=== PATIENT | female | born 2000 | race Caucasian/White ===

== ENCOUNTER 2018-05-09 03:48 | Emergency (ER) | payer OTHER ==
[~2018-05-09] VITALS: Ht 162.6 cm; Wt 61.2 kg
--- OUTSIDE RECORDS SUMMARY | 2018-05-09 03:55 | XMS REPORT ---
Author Author [facility] Address Unknown Care Team Providers Care Gizzard Puller Name Role Phone KEVINSUSY Unavailable PROBLEMS Unknown Problems ALLERGIES No Known Allergies ENCOUNTERS Encounter Location Date Diagnosis [facility] [address] [id number] [place], [place] [id number] Oct, Dental examination Z01.20 IMMUNIZATIONS No Known Immunizations SOCIAL HISTORY Never Assessed REASON FOR VISIT dorinda PLAN OF CARE VITAL SIGNS Blood pressure systolic 135 mmHg 2017-10-20 Blood pressure diastolic 92 mmHg 2017-10-20 MEDICATIONS Medication Instructions Dosage Frequency Start Date End Date Duration Status Depo-Provera Active RESULTS No Results PROCEDURES Procedure Date Ordered Result Body Site LTD ORAL EVALUATION - PROBLEM FOCUS Oct 20, 2017 INTRAORL-PERIAPICAL 1 FILM [id number] Oct 20, 2017 BITEWING - SINGLE FILM Oct 20, 2017 INSTRUCTIONS MEDICATIONS ADMINISTERED No Known Medications MEDICAL (GENERAL) HISTORY Type Description Date Medical History Control
[2018-05-09] MEDS ORDERED: OXYC-471 (03:59)
[2018-05-09] MEDS ORDERED: NS IV 1000 ML 1,000 ML IV ONE ×2 (04:06→05:06)
[2018-05-09 04:16] VITALS: BP_SYST 112; BP_SYST 116; BP_SYST 118; BP_DIAS 78; BP_DIAS 83; BP_DIAS 84
--- NOTE | 2018-05-09 04:16 | ED EENT ---
History of Present Illness General Chief Complaint: Oral/Throat Problems Stated Complaint: THROAT BLEEDING 9 DAYS POST SURGERY Nursing Triage Note: patient reports having a tonsilectomy 9 days prior. patient states that she went to sleep about 0100 and woke up about 0330 and felt like she was drowning due to bleeding from mouth/throat. patient unsure how long she has been bleeding. patient stated she attempted to gargle salt water at home Source: patient Exam Limitations: no limitations History of Present Illness Date Seen by Provider: May 09, 2018 Time Seen by Provider: 04:00 Initial Comments PT ARRIVES VIA POV PT HAD TONSILLECTOMY DONE 04/29/[address] NORWOOD AT [facility] IN [place] PT STATES SHE WOKE UP AT 0330 AND FELT LIKE SHE WAS DROWNING AND WAS HAVING PAIN IN HER THROAT, MOSTLY ON THE RIGHT SIDE LOOKED IN THE MIRROR AND WAS HAVING BLEEDING FROM HER THROAT--MOSTLY FROM THE RIGHT SIDE TRIED TO DO SALT WATER GARGLE BUT WAS NOT ABLE TO STATES SHE FELT LIGHTHEADED, GOT SWEATY AND REALLY WEAK LIKE SHE MIGHT PASS OUT , ESPECIALLY ON STANDING AND WALKING PT LATER STATES THAT SHE HAD SOME MILD BLEEDING 2 NIGHTS AGO, AGAIN WOKE HER FROM SLEEP IN THE MIDDLE OF THE NIGHT, AND WAS ABLE TO GET IT STOPPED WITH GARGLING HAD FRIEND DRIVE HER HERE. PT IS HERE VISITING A FRIEND. NO FEVER NO COUGH OR URI SYMPTOMS NO NAUSEA/VOMITING PT STATES SHE WAS GIVEN RX FOR OXYCODONE AFTER SURGERY, AND LAST DOSE WAS AT 2000 STATES SHE WAS NOT SENT HOME ON ANTIBIOTICS. Allergies and Home Medications Allergies Coded Allergies: No Known Drug Allergies (Unverified , 05/09/18) Patient Home Medication List Home Medication List Reviewed: Yes Review of Systems Constitutional: see HPI, diaphoresis, dizziness Eyes: No Symptoms Reported Ears: No Symptoms Reported Nose: no symptoms reported Mouth: no symptoms reported Throat: see HPI, pain, painful swallowing Respiratory: no symptoms reported Cardiovascular: no symptoms reported Gastrointestinal: no symptoms reported Musculoskeletal: no symptoms reported Skin: no symptoms reported Neurological: No Symptoms Reported Hematologic/Lymphatic: No Symptoms Reported Immunological/Allergic: no symptoms reported Past Uarmuyp-Gdpggx-Nrylgh Hx Patient Social History Alcohol Use: Denies Use Recreational Drug Use: No Smoking Status: Never a Smoker Recent Foreign Travel: No Contact w/Someone Who Travel: No Recent Infectious Disease Expo: No Ebola Symptoms: Denies Symptoms Listed Physical Abuse: No Sexual Abuse: No Past Medical History Surgeries: Yes Adenoidectomy, Tonsillectomy Respiratory: No Cardiac: No Neurological: No Genitourinary: No Gastrointestinal: No Musculoskeletal: No Endocrine: No HEENT: No Cancer: No Psychosocial: No Nursing Suicide Risk Score: 0 Integumentary: No Blood Disorders: No Physical Exam Vital Signs Vital Signs - First Documented 05/09/18 05/09/18 03:56 05:02 Temp 98.1 Pulse 83 Resp 18 B/P (MAP) 119/82 Pulse Ox 98 O2 Delivery Room Air Height, Weight, BMI Height: 5', 4.00" Weight: 135lbs oz, 61.535712bh Method: ,21.09BMI General Appearance: WD/WN, no apparent distress Eyes: bilateral eye normal inspection Ears: bilateral ear auricle normal, bilateral ear canal normal, bilateral ear TM normal Nose: normal inspection Mouth/Throat: other (VOICE MUFFLED. BLOOD WITH CLOTS IN TONSILLAR BEDS--BUT APPEARS TO BE MOSTLY ON RIGHT. 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, no motor/sensory deficits, alert, normal mood/affect, oriented x 3 Skin: normal color, warm/dry Progress/Results/Core Measures Results/Orders Lab Results Laboratory Tests Test 05/09/18 04:17 Range/Units White Blood Count 7.2 4.3-11.0 10^3/uL Red Blood Count 3.90 L 4.35-5.85 10^6/uL Hemoglobin 12.4 11.5-16.0 G/DL Hematocrit 35 35-52 % Mean Corpuscular Volume 90 80-99 FL Mean Corpuscular Hemoglobin 32 25-34 PG Mean Corpuscular Hemoglobin Concent 35 32-36 G/DL Red Cell Distribution Width 11.9 10.0-14.5 % Platelet Count 367 130-400 10^3/uL Mean Platelet Volume 9.5 7.4-10.4 FL Neutrophils (%) (Auto) 40 L 42-75 % Lymphocytes (%) (Auto) 48 H 12-44 % Monocytes (%) (Auto) 8 0-12 % Eosinophils (%) (Auto) 3 0-10 % Basophils (%) (Auto) 0 0-10 % Neutrophils # (Auto) 2.9 1.8-7.8 X 10^3 Lymphocytes # (Auto) 3.5 1.0-4.0 X 10^3 Monocytes # (Auto) 0.6 0.0-1.0 X 10^3 Eosinophils # (Auto) 0.2 0.0-0.3 10^3/uL Basophils # (Auto) 0.0 0.0-0.1 10^3/uL Prothrombin Time 14.8 H 12.2-14.7 SEC INR Comment 1.2 0.8-1.4 Activated Partial Thromboplast Time 27 24-35 SEC Sodium Level 138 135-145 MMOL/L Potassium Level 3.8 3.6-5.0 MMOL/L Chloride Level 108 H 98-107 MMOL/L Carbon Dioxide Level 16 L 21-32 MMOL/L Anion Gap 14 5-14 MMOL/L Blood Urea Nitrogen 7 7-18 MG/DL Creatinine 0.78 0.60-1.30 MG/DL Estimat Glomerular Filtration Rate > 60 BUN/Creatinine Ratio 9 Glucose Level 93 70-105 MG/DL Calcium Level 9.7 8.5-10.1 MG/DL Serum Test, Qualitative NEGATIVE NEGATIVE My Orders Orders - MIGUEL CHIU DO Saline Lock/Iv-Start (05/09/18 04:06) Orthostatic Vital Signs (Adult (05/09/18 04:06) Basic Metabolic Panel (05/09/18 04:06) Cbc With Automated Diff (05/09/18 04:06) Hcg,Qualitative Serum (05/09/18 04:06) Protime With Inr (05/09/18 04:06) Partial Thromboplastin Time (05/09/18 04:06) Saline Lock/Iv-Start (05/09/18 04:06) Ns Iv 1000 Ml (Sodium Chloride 0.9%) (05/09/18 04:06) Fentanyl Injection (Sublimaze Injection (05/09/18 05:03) Saline Lock/Iv-Start (05/09/18 05:06) Ns Iv 1000 Ml (Sodium Chloride 0.9%) (05/09/18 05:06) Medications Given in ED Current Medications Medications Dose Ordered Sig/Silvia Route Start Time Stop Time Status Last Admin Dose Admin Sodium Chloride 1,000 ml @ 0 mls/hr Q0M ONCE IV 05/09/18 04:06 05/09/18 04:09 DC 05/09/18 04:23 0 MLS/HR Sodium Chloride 1,000 ml @ 0 mls/hr Q0M ONCE IV 05/09/18 05:06 05/09/18 05:07 DC 05/09/18 05:12 0 MLS/HR Vital Signs/I&O 05/09/18 05/09/18 05/09/18 05/09/18 03:56 04:16 05:02 05:43 Temp 98.1 98.4 98.2 Pulse 83 66 65 64 85 110 Resp 18 18 B/P (MAP) 119/82 116/83 (94) 114/79 (91) 118/84 (95) 112/78 (89) Pulse Ox 98 98 O2 Delivery Room Air Progress Progress Note : Progress Note ORTHOSTATICS + AND PT IS SYMPTOMATIC WITH THEM PARENTS ARRIVE DURING ER STAY PT GIVEN FENTANYL FOR PAIN UNEVENTFUL ER STAY NO COUGHING OR VOMITING OR SPITTING UP BLOOD IN ER NO DETERIORATION IN PT'S CONDITION DURING ER STAY Departure Communication (Admissions) [phone]--CALLED [facility] DIRECT CALL [phone]--SPOKE WITH DR. BRINK, ENT RESIDENT PARTICLE BOARD SUPERVISOR. SHE ADVISES TRANSFER AND SHE WILL SEE PT IN HER [phone]--SPOKE WITH DR. SPENCER, ER PHYSICIAN, ACCEPTS PT FOR TRANSFER. Impression Primary Impression: Post-tonsillectomy hemorrhage Additional Impression: Orthostasis Disposition: 02 XFER SHT-TRM HOSP Condition: Stable Departure-Patient Inst. Referrals: NO,LOCAL PHYSICIAN (PCP) Primary Care Physician MIGUEL CHIU DO May 09, 2018 04:16
[2018-05-09 04:29] LABS: BASOPHILS % (AUTO) 0 % (0-10); EOSINOPHILS # (AUTO) 0.2 10^3/uL (0.0-0.3); EOSINOPHILS % (AUTO) 3 % (0-10); HEMATOCRIT 35 % (35-52); HEMOGLOBIN 12.4 G/DL (11.5-16.0); LYMPHOCYTES # (AUTO) 3.5 X 10^3 (1.0-4.0); LYMPHOCYTES % (AUTO) 48 % (12-44); MEAN CORPUSCULAR HEMOGLOBIN 32 PG (25-34); MEAN CORPUSCULAR HGB CONC 35 G/DL (32-36); MEAN CORPUSCULAR VOLUME 90 FL (80-99); MEAN PLATELET VOLUME 9.5 FL (7.4-10.4); MONOCYTES # (AUTO) 0.6 X 10^3 (0.0-1.0); MONOCYTES % (AUTO) 8 % (0-12); NEUTROPHILS # (AUTO) 2.9 X 10^3 (1.8-7.8); NEUTROPHILS % (AUTO) 40 % (42-75); PLATELET COUNT 367 10^3/uL (130-400); RED CELL DISTRIBUTION WIDTH 11.9 % (10.0-14.5); WHITE BLOOD COUNT 7.2 10^3/uL (4.3-11.0)
[2018-05-09 04:39] LABS: INR 1.2 (0.8-1.4); PROTHROMBIN TIME PATIENT 14.8 SEC (12.2-14.7)
[2018-05-09 04:45] LABS: BUN/CREATININE RATIO 9; CALCIUM 9.7 MG/DL (8.5-10.1); CARBON DIOXIDE 16 MMOL/L (21-32); CHLORIDE 108 MMOL/L (98-107); CREATININE SERUM 0.78 MG/DL (0.60-1.30); GFR ESTIMATED > 60; GLUCOSE 93 MG/DL (70-105); POTASSIUM 3.8 MMOL/L (3.6-5.0); SODIUM 138 MMOL/L (135-145)
[2018-05-09 05:02] VITALS: BP 114/79
[2018-05-09] MEDS ORDERED: fentaNYL INJECTION 100 MCG/2 ML AMP IVP STA (05:03)
== END 2018-05-09 05:44 | disposition short-term general hospital (02) ==
LOC: ER 03:52
DX: K91.840 Postprocedural hemorrhage of a digestive system organ or structure following a digestive system procedure (principal); I95.1 Orthostatic hypotension; Z90.89 Acquired absence of other organs
CPT/HCPCS: 36415; 80048; 84703; 85025; 85610; 85730; 96374